=== PATIENT | male | born 1955 | race Caucasian/White ===

== ENCOUNTER 2019-12-15 14:06 | Inpatient (IN) | payer OTHER ==
[~2019-12-15] VITALS: Ht 177.8 cm; Wt 87.1 kg
[2019-12-15] VITALS (8 sets, daily range): BP systolic 101–146; BP diastolic 66–113
[2019-12-15 14:43] LABS: ABSOLUTE NEUTROPHILS 9.3 thou/uL (1.4-8.2); EOSINOPHILS 0.2 % (0.0-3.0); HEMATOCRIT 48.3 % (42.0-52.0); HEMOGLOBIN 15.9 gm/dL (14.0-18.0); LYMPHOCYTES 15.7 % (24.0-44.0); MCH 30.7 pg (26.0-34.0); MCV 93.1 fL (80.0-100.0); MONOCYTES 4.1 % (1.0-8.0); PLATELET COUNT 290 thou/uL (150-400); RBC 5.19 mil/uL (4.50-6.00); RDW 12.8 % (10.5-14.5); WBC 11.8 thou/uL (4.0-11.0)
[2019-12-15] MEDS ORDERED: ADDERALL 20 MG20 MG PO (14:47)
[2019-12-15 14:55] LABS: CALCIUM 9.8 mg/dL (8.5-10.1); CREATININE 0.9 mg/dL (0.7-1.3); POTASSIUM 3.7 mmol/L (3.5-5.1)
[2019-12-15 15:05] LABS: ALBUMIN 4.7 g/dL (3.4-5.0); TOTAL BILIRUBIN 1.2 mg/dL (<0.1-1.0); TOTAL PROTEIN 8.6 g/dL (6.4-8.2)
[2019-12-15 15:06] LABS: TROPONIN-I 16.59 ng/mL (<0.06)
[2019-12-15 16:03] LABS: CHOLESTEROL 222 mg/dL (<200); HDL CHOLESTEROL 53 mg/dL (>40); LDL CHOLESTEROL 159 mg/dL (<100); TC:HDL 4.2 Ratio (Not establshd); TRIGLYCERIDE 52 mg/dL (<150); VLDL 10 mg/dL (<40)
--- NOTE | 2019-12-15 20:56 | NUR ---
ASSUMMED PT CARE AT APPROXIMATELY 1730. PT A&O X4. ASSESSMENT CHARTED. FALL PRECAUTIONS IN PLACE. PT DENIES HAVING CHEST PAIN. PT DENIES HAVING SOB. PT DENIES HAVING ACUTE PAIN. PT STATED HE HAD NAUSEA. PT RECIEVED ANTI-EMETICS. PT STATED NAUSEA RESOLVED. VITAL SIGNS STABLE. POST-CATH PROCEDURE. R GROIN C/D/I. NO HEMATOMA. PT COMFORTABLE IN BED. PT DENIES HAVING CONCERNS. ADMISSION COMPLETE.
[2019-12-16] VITALS (23 sets, daily range): BP systolic 92–119; BP diastolic 52–79
--- NOTE | 2019-12-16 01:37 | NUR ---
Pt transferred from CCU s/p fall, negative CT w/o contrast noted, he denies any discomfort, KIM VSShama, was given a snadwich box. The right groin site is C/D/I, no hematoma, no distal numbness, + pulses. His assessement is benign, he is voiding well, and declined the 250 ml NS bolus, as he is taking PO food and fluids well. The bed is in the low/locked position, the call light is within reach and the siderails are up. Will continue to monitor.
--- NOTE | 2019-12-16 04:07 | NUR ---
At approximately 2210, prior to my full head to toe assessment, patient stated he needed to go to the bathroom and that he did not want to use the urinal. Patient did not have on a yellow arm band or yellow socks at this time. This RN assisted patient from a lying position to a sitting position and he sat there for a short period of time. Patient stated he did not feel light-headed or dizzy so assisted patient into a standing position and assisted him to the bathroom. This RN was outside the door with the patient's significant other, son, and daughter in the room. The daughter asked was he okay and the significant other said it sounded like he was blowing his nose. This RN stated it sounded like he was clearing his throat as he had stated earlier in the shift that his throat felt scratchy. I asked through the door if he was okay and I did not get a response. I opened the door and saw patient in a kneeling position with his head pressed against the sink with his right arm in the toilet. I did a quick neuro assessment and patient was very drowsy and I kept having to awaken him to get him to answer. The patient's significant other and I assisted patient back to bed. Patient still very drowsy but kept his eyes open. His nose was reddened and he had a red yesica on his forehead. No other injuries or bruises were noted. Notified Dr. Pichardo and a CT of the head was ordered. Patient went to CT then transferred to ICU for closer monitoring.
[2019-12-16 05:25] LABS: MCH 31.1 pg (26.0-34.0); MCHC 33.3 g/dL (28.0-37.0); MCV 93.4 fL (80.0-100.0); RBC 4.82 mil/uL (4.50-6.00); RDW 12.2 % (10.5-14.5); WBC 9.5 thou/uL (4.0-11.0)
[2019-12-16 05:53] LABS: ALBUMIN 3.7 g/dL (3.4-5.0); CALCIUM 8.8 mg/dL (8.5-10.1); CREATININE 1.1 mg/dL (0.7-1.3); TOTAL PROTEIN 7.1 g/dL (6.4-8.2)
[2019-12-16 05:54] LABS: TROPONIN-I 88.2 ng/mL (<0.06)
--- NOTE | 2019-12-16 08:33 | EKG ---
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[facility] : 1955 Requested By: Tru Villalobos Order Number: [id number] MD: Slick Jain Measurements Intervals [place] Rate: 82 P: 40 NM: 172 QRS: 22 QRSD: 79 T: 95 QT: 393 QTc: 459 Interpretive Statements Sinus rhythm Nonspecific T wave abnormality No previous ECG available for comparison Electronically Signed On 12-16-2019 8:32:28 LOOM CLEANER by Slick Jain [email or web address] <ELECTRONICALLY SIGNED> By: Silck Jain MD, [facility] 12/16/19 0832 1406 1406 Slick Jain MD, FACC /EPI
--- NOTE | 2019-12-16 08:34 | EKG ---
[place] [address] [facility] [place] [address] ELECTROCARDIOGRAM REPORT Name: MEHREENHARLEENLES Room #: 236-P ADM IN M.R.#: [id number] Admission: 12/15/19 Attend Phys: Shad Sneed MD, Discharge: Date of : 59 Report #: [id number] THIS REPORT FOR: //name// [facility] ED Test Date: 2019-12-15 Test Time: 15:16:28 Pat Name: LES CERDA Department: Room: 236 Gender: M Cargo Agent: [facility] : 1955 Requested By: Brenton Boo Order Number: [id number] MD: Slick aJin Measurements Intervals [place] Rate: 75 P: 37 MS: 180 QRS: 42 QRSD: 76 T: 104 QT: 424 QTc: 474 Interpretive Statements Sinus rhythm Abnormal R-wave progression, early transition No previous ECG available for comparison Electronically Signed On 12-16-2019 8:33:58 [employer] DEPUT[employer] SHERIFF by Slick Jain [email or web address] <ELECTRONICALLY SIGNED> By: Slick Jain MD, [facility] 12/16/19 0833 1516 15 Slick Jain MD, FACC /EPI
--- NOTE | 2019-12-16 08:40 | EKG ---
[place] [address] [facility] [place] [address] ELECTROCARDIOGRAM REPORT Name: MEHREENHARLEENLES J Room #: 236-P ADM IN M.R.#: [id number] Admission: 12/15/19 Attend Phys: Shad Sneed MD, Discharge: Date of : 59 Report #: [id number] THIS REPORT FOR: //name// [facility] Test Date: 2019-12-15 Test Time: 18:05:28 Pat Name: LES CERDA Department: Room: [facility] Gender: M Captain/Check Airman: Veronica ALTAMIRANO : 1955 Requested By: Shad Sneed Order Number: [id number] MD: Slick Jain Measurements Intervals [place] Rate: 73 P: 61 UT: 174 QRS: 65 QRSD: 90 T: 102 QT: 432 QTc: 476 Interpretive Statements Sinus rhythm Consider right atrial enlargement Nonspecific T abnrm, anterolateral leads Borderline prolonged QT interval No previous ECG available for comparison Electronically Signed On 12-16-2019 8:39:52 MASONRY TEACHER by Slick Jain [email or web address] <ELECTRONICALLY SIGNED> By: Slick Jain MD, [facility] 12/16/19 0839 180 04 Slick Jain MD, [facility] /EPI
--- NOTE | 2019-12-16 08:45 | EKG ---
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 Nutrition Professor: arielle : 1955 Requested By: Shad Sneed Order Number: [id number] MD: Slick Jain Measurements Intervals [place] Rate: 79 P: 20 IA: 158 QRS: 60 QRSD: 99 T: 121 QT: 417 QTc: 479 Interpretive Statements Sinus rhythm Nonspecific ST and T wave abnormality Borderline prolonged QT interval No previous ECG available for comparison Electronically Signed On 12-16-2019 8:44:40 GREY GOODS TESTER by Slick Jain [email or web address] <ELECTRONICALLY SIGNED> By: Slick Jain MD, [facility] 12/16/19 0844 51 51 Slick Jain MD, FACC /EPI
--- NOTE | 2019-12-16 08:46 | EKG ---
[place] [address] [facility] [place] [address] ELECTROCARDIOGRAM REPORT Name: LES CERDA Room #: 236-P ADM IN M.R.#: [id number] Admission: 12/15/19 Attend Phys: Shad Sneed MD, Discharge: Date of : 59 Report #: [id number] THIS REPORT FOR: //name// [facility] Test Date: 2019-12-16 Test Time: 07:40:45 Pat Name: LES CERDA Department: Room: 236 P Gender: M Media Marketing Director: WAI : 1955 Requested By: Shad Sneed Order Number: [id number] MD: Slick Jain Measurements Intervals [place] Rate: 99 P: 19 OR: 149 QRS: 52 QRSD: 81 T: 113 QT: 378 QTc: 486 Interpretive Statements Sinus rhythm Nonspecific T abnormalities, lateral leads Borderline prolonged QT interval No previous ECG available for comparison Electronically Signed On 12-16-2019 8:45:53 PAPER TESTER by Slick Jain [email or web address] <ELECTRONICALLY SIGNED> By: Slick Jain MD, [facility] 12/16/19 0845 D: [id number] 9 Slick Jain MD, FACC /EPI
--- NOTE | 2019-12-16 10:55 | 2DMMODE ---
[facility] [address] [place] [address] 2 D/M-MODE ECHOCARDIOGRAM Name: LES CERDA Room #: 236-P [facility] IN M.R.#: [id number] Admission: 12/15/19 Attend Phys: Shad Sneed, Discharge: Date of : 59 Report #: [id number] THIS REPORT FOR: //name// APPROVED REPORT Study performed: 12/16/2019 09:31:33 EXAM: Comprehensive 2D, Doppler, and color-flow Echocardiogram Patient Location: ICU Room #: [facility] Status: routine BSA: 2.05 HR: 93 bpm BP: 119/76 mmHg Rhythm: NSR Other Information Study Quality: Good Indications Non STEMI Dyspnea Elevated Troponin Chest Pain Hypertension/HDD 2D Dimensions RVDd: 32.22 mm IVSd: 11.23 (7-11mm) LVOT Diam: 24.12 (18-24mm) LVDd: 43.77 mm PWd: 11.23 (7-11mm) Ascending Ao: 36.80 (22-36mm) LVDs: 32.69 (25-40mm) Aortic Root: 31.58 mm IVC: 14.00 mm Volumes Left Atrial Volume (Systole) Single Plane 4CH: 41.88 mL Single Plane 2CH: 62.01 mL LA ESV Index: 26.00 mL/m2 Aortic Valve AoV Peak Sharad.: 1.17 m/s AO Peak Gr.: 5.52 mmHg LVOT Max P.25 mmHg LVOT Max V: 0.90 m/s ELYSIA Vmax: 3.50 cm2 [facility] [address] [place] [address] 2 D/M-MODE ECHOCARDIOGRAM Name: LES CERDA Room #: 236-P [facility].#: [id number] Admission: 12/15/19 Attend Phys: Shad Sneed, Discharge: Date of : 59 Report #: [id number] Mitral Valve E/A Ratio: 0.6 MV Decel. Time: 316.37 ms MV E Max Sharad.: 0.56 m/s MV A Sharad.: 0.98 m/s MV PHT: 91.75 ms IVRT: 128.03 ms Pulmonary Valve PV Peak Sharad.: 1.15 m/s PV Peak Gr.: 5.25 mmHg Pulmonary Vein P Vein S: 0.43 m/s P Vein A: 0.26 m/s P Vein D: 0.25 m/s P Vein A Dur.: 62.3 msec P Vein S/D Ratio: 1.72 Left Ventricle The left ventricle is normal size. There is hypokinesis in the anteriorlateral wall. There is normal left ventricular wall thickness. Left ventricular systolic function is borderline. LVEF is 45-50%. Grade I - abnormal relaxation pattern. Right Ventricle The right ventricle is normal size. The right ventricular systolic function is normal. Atria The left atrium size is normal. The right atrium size is normal. Aortic Valve The aortic valve is normal in structure. No aortic regurgitation is present. There is no aortic valvular stenosis. Mitral Valve The mitral valve is normal in structure. There is no mitral valve regurgitation noted. No evidence of mitral valve stenosis. Tricuspid Valve The tricuspid valve is normal in structure. There is no tricuspid valve regurgitation noted. Pulmonic Valve The pulmonary valve is normal in structure. There is no pulmonic valvular regurgitation. [facility] [address] [place] [address] 2 D/M-MODE ECHOCARDIOGRAM Name: LES CERDA Room #: 236-P [facility] IN M.R.#: [id number] Admission: 12/15/19 Attend Phys: Shad Sneed, Discharge: Date of : 59 Report #: [id number] Great Vessels The aortic root is normal in size. IVC is normal in size and collapses >50% with inspiration. Pericardium no effusion <Conclusion> The left ventricle is normal size. Left ventricular systolic function is borderline. There is hypokinesis in the anteriorlateral wall. LVEF is 45-50%. Grade I - abnormal relaxation pattern. The right ventricle is normal size. The left atrium size is normal. The aortic valve is normal in structure. The mitral valve is normal in structure. There is no tricuspid valve regurgitation noted. The aortic root is normal in size. no effusion <ELECTRONICALLY SIGNED> By: Shad Sneed MD, FACC 12/16/19 1054 1054 1054 Shad Sneed MD, FACC /INF
--- NOTE | 2019-12-16 13:37 | NUR ---
PT PROGRESSING TOWARDS PLAN OF CARE, EVIDENCE BY TRANSFER TO CCU, NO CHEST PAIN/SOA/NAUSEA/VOMITING/FEVER.
--- NOTE | 2019-12-16 18:33 | NUR ---
PT ARRIVED FROM ICU AROUND 2PM. PT IS UP WITH SBA. ON ROOM AIR, VSS. UPDATED PT ON POC. FAMILY AT BEDSIDE. DENIES CHEST PAIN
--- NOTE | 2019-12-16 22:29 | NUR ---
ASSUMED CARE PT 1899. ASSESSMENT CHARTED. MEDS GIVEN PER JAN. PT ALERT AND ORIENTED. VSS.DENIES PAIN. O2 SATS WNL ON ROOM AIR. PT UP SBA TOLERATING WELL. FALL PRECAUTIONS IN PLACE. RIGHT GROIN SITE CDI NO HEMATOMA. DENIES CHEST PAIN. FAMILY IN ROOM WITH PT. DENYING OF NEEDS AT THIS TIME. REPORT PASSED ONTO MUTUEL CLERK NURSE HAYDEE AT APPROX 0575.
[2019-12-17 04:54] VITALS: BP 111/67
[2019-12-17 05:41] LABS: ALBUMIN 3.3 g/dL (3.4-5.0); CALCIUM 8.4 mg/dL (8.5-10.1); TOTAL PROTEIN 6.8 g/dL (6.4-8.2)
--- NOTE | 2019-12-17 07:47 | NUR ---
RECEIVED REPORT FROM WASTA DAY SHIFT RN.ASSUMED CARE AROUND 2229.PATIENT A/O X 4.RIGHT GROIN C/D/I.NO HEMATOMA NOTED.NPO SINCE MIDNIGHT FOR A POSSIBLE ABDOMINAL ULTRASOUND THIS MORNING.POC CONTINUED.
[2019-12-17] MEDS ORDERED: EFFIENT10 MG PO (08:11)
[2019-12-17] MEDS ORDERED: ASPIRIN325 PO (08:11)
[2019-12-17] MEDS ORDERED: CRESTOR20 MG PO (08:11)
[2019-12-17] MEDS ORDERED: TOPROL XL25 MG PO (08:19)
[2019-12-17 10:06] VITALS: BP 111/67
[2019-12-17 12:23] VITALS: BP 111/67
--- NOTE | 2019-12-20 17:28 | CATHLAB ---
[facility] [place] [address] INVASIVE PROCEDURE REPORT Name: LES CERDA Room #: 211-P [facility]#: [id number] Admission: 12/15/19 Attend Phys: Shad Sneed, Discharge: 12/17/19 Date of : 59 Report #: [id number] THIS REPORT FOR: //name// APPROVED REPORT Study performed: 12/15/2019 15:57:44 Patient Details The patient is a 63 year-old male Event Personnel Shad Sneed Seed Yeast Operator, Micaela Hill RN RN, Julio Perez RTR Rebel Shaw Sherra RTR Monitor, Donna Coyle Monitor, Jennifer Larsen RN dental practitioner Performed Art Access - R femoral artery* Left Heart Cath w/or w/o Coronaries [id number] [facility] [address] w/wo Plasty Single DIAG 954187 76576 Initial Mod Sed Same Phys/QHP Gr5y 181076 Aortogram Abdominal Peripheral Angio 782638 72407 Mod Sed Same Phys/QHP Ea 459449 Hemostasis w/ Mynx Indication Chest pain Procedure Narrative The Right Groin^ was infiltrated with 1% Lidocaine subcutaneous anesthesia. A TenasiTechNACLE 6FR TIF Sheath #[id number] sheath was inserted into the RFA 6 fr^. Coronary angiography was performed using coronary diagnostic catheters. The right coronary system was accessed and visualized with a JR4 catheter. The left coronary system was accessed and visualized with a JL4 catheter. The left ventricle was accessed and visualized with a pigtail catheter. Left ventriculogram was performed in 30 degree projection. An aortogram of the abdominal aorta was performed. Closure device was deployed with a Fr MYNXGRIP 6/7F #[id number]. The patient tolerated the procedure well and there were no complications associated with the procedure. There was no hematoma. Intraoperative Conscious Sedation Sedation start time: 1621 Case end Time: 1724 Fentanyl 50 mcg Versed 1 mg Fluoro Time: 1731.00 minutes [facility] [address] [place] [address] INVASIVE PROCEDURE REPORT Name: PRASHANTLES Jessee Room #: 211-P [facility]..#: [id number] Admission: 12/15/19 Attend Phys: Shad Sneed, Discharge: 12/17/19 Date of : 59 Report #: [id number] Dose: DAP 82065.90 cGycm2 1731 mGy Contrast Type and Amount: Omnipaque 205 ml Hemodynamics The aortic pressure is 166/98 mmHg with a mean of 125 mmHg. The left ventricular pressure is 174/17 mmHg with a mean of mmHg. The left ventricular end diastolic pressure is 31 mmHg. PCI Technique Lesion Percutaneous coronary intervention was performed on the first diagnonal branch segment. A LAUNCHER 6FR EBU 3.5 #[id number] Guide Catheter was used to engage the ostium. A Luge Wire .014 x 182CM #[id number] Interventional Guidewire was used to cross the lesion. BALLOON DILATION A Balloon catheter Sprinter OTW 2.0 x 12 #[id number] was inserted and inflated up to 8.00atm for 28seconds. Additional Inflation: 12.00atm for 18seconds. STENT DEPLOYMENT A drug-eluting stent RESOLUTE TONYA RX 2.25 X 8 #[id number] was inserted and inflated up to 12.00atm for 34seconds. Additional Inflation: 14.00atm for 18seconds. Conclusion #1 Successful PTCA stent of an occluded moderate size diagonal branch which is the acute infarct vessel. 2.25 x 8 resolute YRN grade 3 flow # 2 left main with mild ostial disease giving rise to LAD and circumflex 3 LAD moderately disease proximal with mild calcification eccentric 70% lesion mild diseases this wraps around the apex. We will follow. #4 circumflex OM with an eccentric 70% proximal lesion following a moderate sized OM branch not dominant #5 dominant right coronary with moderate disease proximal mid vessel filling the PDA IVAN also mildly diseased will follow. #6 normal left ventricular size with high anterior lateral wall leg EF 45-50% range #7 abdominal aorta intact no aneurysm mild ectasia single bilateral renal arteries widely patent. Recommendations and plan: Continue aggressive risk factor modification. Patient hemodynamically stable changes pain-free. Transfer to CCU to follow stent protocol. Dual antiplatelet [facility] [address] [place] [address] INVASIVE PROCEDURE REPORT Name: LES CERDA Room #: 211-P [facility] IN M.R.#: [id number] Admission: 12/15/19 Attend Phys: Shad Sneed, Discharge: 12/17/19 Date of : 59 Report #: [id number] therapy. We'll further evaluate LAD circumflex and RCA lesions with noninvasive stress testing in for areas of significant ischemia. <ELECTRONICALLY SIGNED> By: Shad Sneed MD, FACC 12/20/191726 26 26 Shad Sneed MD, FACC /INF
== END 2019-12-17 11:22 | disposition home or self-care (01) | DRG 246 ==
LOC: ER 14:06 → EROBS 15:20 → ICU 15:20 → 2N 15:20 → ICU 23:59 → 2N 12-16 14:02
PROVIDERS: Physician Assistant; ADMIT Internal Medicine Cardiovascular Disease
PROC: 4A023N7 Measurement of Cardiac Sampling and Pressure, Left Heart, Percutaneous Approach (ICD-10-PCS; principal; 2019-12-15)
PROC: B4101ZZ Fluoroscopy of Abdominal Aorta using Low Osmolar Contrast (ICD-10-PCS; principal; 2019-12-15)
PROC: 027034Z Dilation of Coronary Artery, One Artery with Drug-eluting Intraluminal Device, Percutaneous Approach (ICD-10-PCS; principal; 2019-12-15)
PROC: B2111ZZ Fluoroscopy of Multiple Coronary Arteries using Low Osmolar Contrast (ICD-10-PCS; principal; 2019-12-15)
PROC: B2151ZZ Fluoroscopy of Left Heart using Low Osmolar Contrast (ICD-10-PCS; principal; 2019-12-15)
DX: I21.4 Non-ST elevation (NSTEMI) myocardial infarction (principal); I50.33 Acute on chronic diastolic (congestive) heart failure; K40.90 Unilateral inguinal hernia, without obstruction or gangrene, not specified as recurrent; E78.5 Hyperlipidemia, unspecified; R79.89 Other specified abnormal findings of blood chemistry; Z82.49 Family history of ischemic heart disease and other diseases of the circulatory system; Z79.899 Other long term (current) drug therapy; I11.0 Hypertensive heart disease with heart failure
CPT/HCPCS: 10081; 10203

== ENCOUNTER → 2020-03-16 | Outpatient (CLI) | payer OTHER ==
[~2020-03-16] MED LIST: ADDERALL 20 MG20 MG PO; ASPIRIN325 PO; CRESTOR20 MG PO; EFFIENT10 MG PO; TOPROL XL25 MG PO
== END ==
LOC: SJCVCIMAG 13:38
DX: I25.10 Atherosclerotic heart disease of native coronary artery without angina pectoris (principal); I42.9 Cardiomyopathy, unspecified

== ENCOUNTER → 2020-05-12 | Outpatient (CLI) | payer OTHER | LOC: SJCVCIMAG 09:15 | PROVIDERS: ATTEND Internal Medicine Cardiovascular Disease | DX: R00.0 Tachycardia, unspecified (principal); R55 Syncope and collapse; I42.9 Cardiomyopathy, unspecified; I25.10 Atherosclerotic heart disease of native coronary artery without angina pectoris; I10 Essential (primary) hypertension; E78.5 Hyperlipidemia, unspecified; I25.2 Old myocardial infarction; Z98.61 Coronary angioplasty status; Z79.82 Long term (current) use of aspirin; Z79.899 Other long term (current) drug therapy ==

== ENCOUNTER → 2021-06-01 | Outpatient (CLI) | payer OTHER | LOC: SJCVCIMAG 09:50 | PROVIDERS: ATTEND Internal Medicine Cardiovascular Disease | DX: I49.1 Atrial premature depolarization (principal); I25.10 Atherosclerotic heart disease of native coronary artery without angina pectoris; R06.00 Dyspnea, unspecified; R51.9 Headache, unspecified ==